=== PATIENT | male | born 1975 | race Caucasian/White ===

== ENCOUNTER 2018-09-05 11:58 | Observation (INO) | payer BC ==
--- NOTE | 2018-09-05 12:23 | ED ---
General Adult HPI - General Chief complaint: Chest Pain Stated complaint: chest & arm pain Time Seen by Provider: 09/05/18 12:11 Source: patient, RN notes reviewed, old records reviewed Mode of arrival: wheelchair Limitations: no limitations - History of Present Illness Initial comments: 43-year-old male with no significant medical history presents for evaluation of left-sided chest pain. Patient's pain has been present for the past 3 days. Describes it as a constant dull left-sided chest ache. He does have some pain in his back as well. He reports lifting some heavy items at work and also initiating a new workout routine. Patient is presenting because he is concerned that this may be related to his heart. Denies sharp shooting pains. Denies dyspnea. Denies cough. Denies nausea vomiting or diaphoresis. No known history of CAD. No family history of CAD. - Related Data Home Medications Medication Instructions Recorded Confirmed No Known Home Medications 09/05/18 09/05/18 Allergies Allergy/AdvReac Type Severity Reaction Status Date / Time No Known Allergies Allergy Verified 09/05/18 12:34 Review of Systems ROS Statement: Those systems with pertinent positive or pertinent negative responses have been documented in the HPI. ROS Other: All systems not noted in ROS Statement are negative. Past Medical History Past Medical History: No Reported History History of Any Multi-Drug Resistant Organisms: None Reported Past Surgical History: No Surgical Hx Reported Past Psychological History: No Psychological Hx Reported Smoking Status: Never smoker Past Alcohol Use History: Occasional Past Drug Use History: None Reported General Exam Limitations: no limitations General appearance: alert, in no apparent distress Head exam: Present: atraumatic, normocephalic Eye exam: Present: normal appearance, PERRL ENT exam: Present: normal exam Neck exam: Present: normal inspection. Absent: tenderness, meningismus Respiratory exam: Present: normal lung sounds bilaterally. Absent: respiratory distress, wheezes, chest wall tenderness, accessory muscle use Cardiovascular Exam: Present: regular rate, normal rhythm GI/Abdominal exam: Present: soft. Absent: distended, tenderness, guarding Extremities exam: Present: normal inspection, normal capillary refill. Absent: pedal edema, calf tenderness Back exam: Present: normal inspection. Absent: full ROM, tenderness Neurological exam: Present: alert, oriented X3, CN II-XII intact. Absent: motor sensory deficit Psychiatric exam: Present: normal affect, normal mood Skin exam: Present: warm, dry, intact. Absent: cyanosis, diaphoretic Course Vital Signs 09/05/18 09/05/18 11:59 12:39 Temperature 97.7 F Pulse Rate 81 59 L Respiratory 18 16 Rate Blood Pressure 152/96 131/79 O2 Sat by Pulse 100 99 Oximetry EKG Findings - EKG Comments: EKG Findings:: EKG: Normal sinus rhythm with sinus arrhythmia, rate of 71, NV interval 166, QRS duration 92, QTC 432, no ST segment elevation Medical Decision Making - Medical Decision Making 43-year-old male presenting with left-sided chest pain. Pain is not reproducible on exam. Patient is concerned this may be related to his heart. EKG is negative for definitive signs of ischemia. Chest x-ray negative for acute cardiopulmonary disease. Patient has normal CBC, normal CMP, negative d- dimer, negative initial troponin. Patient will be kept in observation for serial cardiac enzymes, cardiology consultation. - Lab Data Result diagrams: 09/05/18 12:29 09/05/18 12:29 Lab Results 09/05/18 09/05/18 09/05/18 Range/Units 12:29 12:29 12:29 WBC 7.5 (3.8-10.6) k/uL RBC 4.76 (4.30-5.90) m/uL Hgb 14.6 (13.0-17.5) gm/dL Hct 44.8 (39.0-53.0) % MCV 94.1 (80.0-100.0) fL MCH 30.7 (25.0-35.0) pg MCHC 32.6 (31.0-37.0) g/dL RDW 12.3 (11.5-15.5) % Plt Count 271 (150-450) k/uL Neutrophils % 73 % Lymphocytes % 21 % Monocytes % 5 % Eosinophils % 1 % Basophils % 0 % Neutrophils # 5.5 (1.3-7.7) k/uL Lymphocytes # 1.5 (1.0-4.8) k/uL Monocytes # 0.3 (0-1.0) k/uL Eosinophils # 0.0 (0-0.7) k/uL Basophils # 0.0 (0-0.2) k/uL PT (9.0-12.0) sec INR (<1.2) APTT (22.0-30.0) sec D-Dimer (<0.60) mg/L FEU Sodium 143 (137-145) mmol/L Potassium 3.9 (3.5-5.1) mmol/L Chloride 108 H (98-107) mmol/L Carbon Dioxide 24 (22-30) mmol/L Anion Gap 11 mmol/L BUN 17 (9-20) mg/dL Creatinine 1.02 (0.66-1.25) mg/dL Est GFR (CKD-EPI)AfAm >90 (>60 ml/min/1.73 sqM) Est GFR (CKD-EPI)NonAf >90 (>60 ml/min/1.73 sqM) Glucose 105 H (74-99) mg/dL Calcium 10.4 H (8.4-10.2) mg/dL Magnesium 2.0 (1.6-2.3) mg/dL Total Bilirubin 1.3 (0.2-1.3) mg/dL AST 40 (17-59) U/L ALT 37 (21-72) U/L Alkaline Phosphatase 78 (38-126) U/L Total Creatine Kinase 184 H (55-170) U/L CK-MB (CK-2) 0.7 (0.0-2.4) ng/mL CK-MB (CK-2) Rel Index 0.4 Troponin I <0.012 (0.000-0.034) ng/mL Total Protein 8.9 H (6.3-8.2) g/dL Albumin 5.1 H (3.5-5.0) g/dL 09/05/18 Range/Units 12:29 WBC (3.8-10.6) k/uL RBC (4.30-5.90) m/uL Hgb (13.0-17.5) gm/dL Hct (39.0-53.0) % MCV (80.0-100.0) fL MCH (25.0-35.0) pg MCHC (31.0-37.0) g/dL RDW (11.5-15.5) % Plt Count (150-450) k/uL Neutrophils % % Lymphocytes % % Monocytes % % Eosinophils % % Basophils % % Neutrophils # (1.3-7.7) k/uL Lymphocytes # (1.0-4.8) k/uL Monocytes # (0-1.0) k/uL Eosinophils # (0-0.7) k/uL Basophils # (0-0.2) k/uL PT 9.8 (9.0-12.0) sec INR 1.0 (<1.2) APTT 23.6 (22.0-30.0) sec D-Dimer 0.25 (<0.60) mg/L FEU Sodium (137-145) mmol/L Potassium (3.5-5.1) mmol/L Chloride (98-107) mmol/L Carbon Dioxide (22-30) mmol/L Anion Gap mmol/L BUN (9-20) mg/dL Creatinine (0.66-1.25) mg/dL Est GFR (CKD-EPI)AfAm (>60 ml/min/1.73 sqM) Est GFR (CKD-EPI)NonAf (>60 ml/min/1.73 sqM) Glucose (74-99) mg/dL Calcium (8.4-10.2) mg/dL Magnesium (1.6-2.3) mg/dL Total Bilirubin (0.2-1.3) mg/dL AST (17-59) U/L ALT (21-72) U/L Alkaline Phosphatase (38-126) U/L Total Creatine Kinase (55-170) U/L CK-MB (CK-2) (0.0-2.4) ng/mL CK-MB (CK-2) Rel Index Troponin I (0.000-0.034) ng/mL Total Protein (6.3-8.2) g/dL Albumin (3.5-5.0) g/dL Disposition Clinical Impression: Chest pain Disposition: HOME SELF-CARE Condition: Stable Is patient prescribed a controlled substance at d/c from ED?: No Referrals: None,Stated [Primary Care Provider] - 1-2 days Decision to Admit Reason: Admit from EC Decision Date: 09/05/18 Decision Time: 14:45
--- NOTE | 2018-09-05 12:50 | XR ---
EXAMINATION TYPE: XR chest 2V DATE OF EXAM: 09/05/2018 COMPARISON: None INDICATION: Chest pain left arm pain TECHNIQUE: Frontal and lateral views of the chest are obtained. FINDINGS: The heart size is normal. The pulmonary vasculature is normal. The lungs are clear. IMPRESSION: 1. No acute pulmonary process.
[2018-09-05 12:56] LABS: Basophils % (A) 0 %; Eosinophils % (A) 1 %; HCT 44.8 % (39.0-53.0); HGB 14.6 gm/dL (13.0-17.5); Lymphocytes # (A) 1.5 k/uL (1.0-4.8); Lymphocytes % (A) 21 %; MCH 30.7 pg (25.0-35.0); MCHC 32.6 g/dL (31.0-37.0); MCV 94.1 fL (80.0-100.0); Mean Platelet Volume 7.1; Monocytes # (A) 0.3 k/uL (0-1.0); Monocytes % (A) 5 %; Neutrophils # (A) 5.5 k/uL (1.3-7.7); Neutrophils % (A) 73 %; Platelet Count 271 k/uL (150-450); RBC 4.76 m/uL (4.30-5.90); RDW 12.3 % (11.5-15.5); WBC 7.5 k/uL (3.8-10.6)
[2018-09-05 13:11] LABS: D-Dimer 0.25 mg/L FEU (<0.60); Partial Thromboplastin Time 23.6 sec (22.0-30.0); Prothrombin Time 9.8 sec (9.0-12.0)
[2018-09-05 13:19] LABS: ALT 37 U/L (21-72); AST 40 U/L (17-59); Albumin 5.1 g/dL (3.5-5.0); Alkaline Phosphatase 78 U/L (38-126); Anion Gap 11 mmol/L; Blood Urea Nitrogen 17 mg/dL (9-20); Calcium 10.4 mg/dL (8.4-10.2); Carbon Dioxide 24 mmol/L (22-30); Chloride 108 mmol/L (98-107); Glucose 105 mg/dL (74-99); Potassium 3.9 mmol/L (3.5-5.1); Sodium 143 mmol/L (137-145); Total Bilirubin 1.3 mg/dL (0.2-1.3); Total Protein 8.9 g/dL (6.3-8.2)
[2018-09-05 13:20] LABS: Creatine Kinase 184 U/L (55-170)
[2018-09-05 13:30] LABS: Creatine Kinase MB 0.7 ng/mL (0.0-2.4); Troponin I <0.012 ng/mL (0.000-0.034)
[2018-09-05] MEDS ORDERED: ASPIRIN 325 MG TAB PO STA (14:38)
[2018-09-05] MEDS ORDERED: NALOXONE 0.4 MG/ML 1 ML VIAL IV PRN (14:41)
[2018-09-05] MEDS ORDERED: ACETAMINOPHEN TAB 325 MG TAB PO PRN (14:41)
[2018-09-05] MEDS ORDERED: ONDANSETRON 4 MG/2 ML VIAL IVP PRN (14:41)
[2018-09-05] MEDS ORDERED: IBUPROFEN 400 MG TAB PO PRN (14:41)
--- NOTE | 2018-09-05 16:24 | P.HPIM ---
History of Present Illness H&P Date: 09/05/18 Chief Complaint: Chest pain 43-year-old male with no past medical history presents the ED for chest pain. Patient states he has been experiencing this pain since Wednesday and Wednesday. Pain started while he was laying down on the couch. Patient reports pain to be constant. Pain is left-sided. Pain is 2 out of 10 in severity. Pain is described as dull and aching in nature. Pain occasionally radiates to the left shoulder. Pain is non-tender and non- pleuritic. Patient reports no aggravating or alleviating factors. Patient does report doing heavy lifting at work. His pain got more aggravated this morning, prompting him to come to the ED. He denies any headaches, lower extremity edema, nausea, vomiting, fever, cough, shortness of breath, palpitations, changes in urination or bowel habits. No changes in appetite or weight. He does report smoking half pack per day for about 7-10 years. He has no family history of early cardiac disease. In the ED, CBC and coagulation panel was unremarkable. CMP showed a chloride of 108, glucose 105, calcium of 10.4. Creatinine kinase is 184. Initial troponin was less than 0.012, EKG showing normal sinus rhythm. Chest x-ray shows no acute pulmonary process. Patient is admitted for chest pain, rule out acute coronary syndrome. Cardiology on consult. Review of Systems All systems: negative Past Medical History Past Medical History: No Reported History History of Any Multi-Drug Resistant Organisms: None Reported Past Surgical History: No Surgical Hx Reported Past Psychological History: No Psychological Hx Reported Smoking Status: Never smoker Past Alcohol Use History: Occasional Past Drug Use History: None Reported - Past Family History Mother Family Medical History: AFIB, Hypertension Father Family Medical History: AFIB Medications and Allergies Home Medications Medication Instructions Recorded Confirmed Type No Known Home Medications 09/05/18 09/05/18 History Allergies Allergy/AdvReac Type Severity Reaction Status Date / Time No Known Allergies Allergy Verified 09/05/18 12:34 Physical Exam Vitals: Vital Signs Temp Pulse Pulse Pulse Resp BP BP 09/05/18 15:34 58 L 09/05/18 15:15 98.1 F 56 L 18 137/76 09/05/18 14:57 98.1 F 74 16 125/74 09/05/18 12:39 59 L 16 131/79 09/05/18 11:59 97.7 F 81 18 152/96 Pulse Ox 09/05/18 15:34 09/05/18 15:15 97 09/05/18 14:57 100 09/05/18 12:39 99 09/05/18 11:59 100 Intake and Output 09/05/18 09/05/18 09/05/18 06:59 14:59 22:59 Other: Weight 95.254 kg 97.4 kg General: [non toxic], [no distress], [appears at stated age] Derm: [warm], [dry] Head: [atraumatic], [normocephalic], [symmetric] Eyes: [EOMI], [no lid lag], [anicteric sclera] Mouth: [no lip lesion], [mucus membranes moist] Cardiovascular: [S1S2 reg], [no murmur], [positive posterior tibial pulse bilateral], Lungs: [CTA bilateral], [no rhonchi, no rales] , [no accessory muscle use] Abdominal: [soft], [ nontender to palpation], [no guarding], [no appreciable organomegaly] Ext: [no gross muscle atrophy], [no edema], [no contractures] Neuro: [ CN II-XI grossly intact], [no focal neuro deficits] Psych: [Alert], [oriented], [appropriate affect] Results CBC & Chem 7: 09/05/18 12:29 09/05/18 12:29 Labs: Abnormal Lab Results - Last 24 Hours (Table) 09/05/18 09/05/18 Range/Units 12:29 12:29 Chloride 108 H (98-107) mmol/L Glucose 105 H (74-99) mg/dL Calcium 10.4 H (8.4-10.2) mg/dL Total Creatine Kinase 184 H (55-170) U/L Total Protein 8.9 H (6.3-8.2) g/dL Albumin 5.1 H (3.5-5.0) g/dL Thrombosis Risk Factor Assmnt - Choose All That Apply Any of the Below Risk Factors Present?: Yes Each Factor Represents 1 point: Age 41-60 years, Obesity (BMI >25) Other Risk Factors: No Thrombosis Risk Factor Assessment Total Risk Factor Score: 2 Thrombosis Risk Factor Assessment Level: Low Risk Assessment and Plan Assessment: Assessment and Plan 1. Chest pain: Likely MSK due to heavy lifting at work. Low concerns for ACS. Troponin < 0.012 x 1, EKG showing NSR. CXR negative. Telemetry monitoring. Pain management with Tylenol and Motrin PRN. HEART healthy diet. Trend 2 Trop/EKG to r/o ACS. FU Echocardiogram, Cardiology consult. 2. Hypercalcemia: Mildly elevated at 10.4, patient is asymptomatic. FU with PCP in the outPT setting for workup. 3. Elevated CPK: CPK 184. Likely due to heavy lifting. Encourage PO hydration. 4. DVT Prophylaxis: Low risk for VTE. Early mobilization. Patient is being admitted for chest pain, rule out acute coronary syndrome. Trend and troponins. Cardiology on consult.
[2018-09-05 19:35] LABS: Creatine Kinase 136 U/L (55-170)
[2018-09-05 19:49] LABS: Creatine Kinase MB 0.4 ng/mL (0.0-2.4); Troponin I <0.012 ng/mL (0.000-0.034)
[2018-09-05] MEDS ORDERED: MELATONIN 5 MG TABLET PO STA (20:00)
[2018-09-06 02:05] LABS: Creatine Kinase 112 U/L (55-170)
[2018-09-06 02:19] LABS: Creatine Kinase MB 0.3 ng/mL (0.0-2.4); Troponin I <0.012 ng/mL (0.000-0.034)
[2018-09-06 07:43] VITALS: RESP 18; TEMP 97.7
--- NOTE | 2018-09-06 08:30 | P.CRDCN ---
History of Present Illness Consult date: 09/06/18 Chief complaint: Chest discomfort History of present illness: This is a pleasant 43-year-old gentleman with no significant past medical history presented to the emergency room complaining of chest discomfort. He was in his usual state of health until yesterday when he was at home and started experiencing chest discomfort, as a dull kind of discomfort, in the mid as well as left side of the chest, with some radiation to the left arm as well as the left shoulder. No associated symptoms of shortness of breath, sweating, dizziness or lightheadedness or syncope. The discomfort lasted until the patient presented to the emergency room where he was given nitroglycerin without improvement in the symptoms. Currently the patient is chest pain-free. The EKG showed sinus rhythm without any significant ST or T-wave abnormalities. Cardiac enzymes were checked and came in to be unremarkable. 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 No diabetes, hypertension, or dyslipidemia. The patient used to smoke but he quit smoking about 3 years ago. No significant history of premature CAD. Past Medical History Past Medical History: No Reported History History of Any Multi-Drug Resistant Organisms: None Reported Past Surgical History: No Surgical Hx Reported Past Psychological History: No Psychological Hx Reported Smoking Status: Never smoker Past Alcohol Use History: Occasional Past Drug Use History: None Reported - Past Family History Mother Family Medical History: AFIB, Hypertension Father Family Medical History: AFIB Medications and Allergies Home Medications Medication Instructions Recorded Confirmed Type No Known Home Medications 09/05/18 09/05/18 History Allergies Allergy/AdvReac Type Severity Reaction Status Date / Time No Known Allergies Allergy Verified 09/05/18 12:34 Physical Exam Vitals: Vital Signs Temp Pulse Pulse Pulse Resp BP BP 09/06/18 07:25 97.7 F 53 L 18 110/68 09/06/18 03:59 16 09/06/18 03:31 98.5 F 74 16 106/63 09/05/18 23:53 98.3 F 68 16 118/63 09/05/18 23:13 16 09/05/18 20:00 16 09/05/18 19:31 99.1 F 60 16 129/70 09/05/18 16:00 59 L 09/05/18 15:34 58 L 09/05/18 15:15 98.1 F 56 L 18 137/76 09/05/18 14:57 98.1 F 74 16 125/74 09/05/18 12:39 59 L 16 131/79 09/05/18 11:59 97.7 F 81 18 152/96 Pulse Ox 09/06/18 07:25 98 09/06/18 03:59 09/06/18 03:31 95 09/05/18 23:53 95 09/05/18 23:13 09/05/18 20:00 09/05/18 19:31 97 09/05/18 16:00 09/05/18 15:34 09/05/18 15:15 97 09/05/18 14:57 100 09/05/18 12:39 99 09/05/18 11:59 100 Intake and Output 09/05/18 09/06/18 09/06/18 22:59 06:59 14:59 Other: Voiding Method Toilet Toilet # Voids 1 1 Weight 97.4 kg - Constitutional General appearance: no acute distress - Respiratory Respiratory: bilateral: CTA - Cardiovascular Rhythm: regular Heart sounds: normal: S1, S2 Results 09/05/18 12:29 09/05/18 12:29 Cardiac Enzymes 09/05/18 09/05/18 09/05/18 Range/Units 12:29 12:29 18:46 AST 40 (17-59) U/L CK-MB (CK-2) 0.7 0.4 (0.0-2.4) ng/mL Troponin I <0.012 <0.012 (0.000-0.034) ng/mL 09/06/18 Range/Units 01:11 AST (17-59) U/L CK-MB (CK-2) 0.3 (0.0-2.4) ng/mL Troponin I <0.012 (0.000-0.034) ng/mL Coagulation 09/05/18 Range/Units 12:29 PT 9.8 (9.0-12.0) sec APTT 23.6 (22.0-30.0) sec CBC 09/05/18 Range/Units 12:29 WBC 7.5 (3.8-10.6) k/uL RBC 4.76 (4.30-5.90) m/uL Hgb 14.6 (13.0-17.5) gm/dL Hct 44.8 (39.0-53.0) % Plt Count 271 (150-450) k/uL Comprehensive Metabolic Panel 09/05/18 Range/Units 12:29 Sodium 143 (137-145) mmol/L Potassium 3.9 (3.5-5.1) mmol/L Chloride 108 H (98-107) mmol/L Carbon Dioxide 24 (22-30) mmol/L BUN 17 (9-20) mg/dL Creatinine 1.02 (0.66-1.25) mg/dL Glucose 105 H (74-99) mg/dL Calcium 10.4 H (8.4-10.2) mg/dL AST 40 (17-59) U/L ALT 37 (21-72) U/L Alkaline Phosphatase 78 (38-126) U/L Total Protein 8.9 H (6.3-8.2) g/dL Albumin 5.1 H (3.5-5.0) g/dL Current Medications Generic Name Dose Route Start Last Admin Trade Name Freq PRN Reason Stop Dose Admin Acetaminophen 650 mg 09/05/18 14:41 Tylenol Tab PO Q6HR PRN Mild Pain or Fever > 100.5 Aspirin 325 mg 09/06/18 09:00 Aspirin PO DAILY TEO Ibuprofen 400 mg 09/05/18 14:41 09/05/18 22:04 Motrin PO 400 mg Q6HR PRN Administration Mild Pain or Fever > 100.5 Naloxone HCl 0.2 mg 09/05/18 14:41 Narcan IV Q2M PRN Opioid Reversal Ondansetron HCl 4 mg 09/05/18 14:41 Zofran IVP Q8HR PRN Nausea And Vomiting Intake and Output 09/05/18 09/06/18 09/06/18 22:59 06:59 14:59 Other: Voiding Method Toilet Toilet # Voids 1 1 Weight 97.4 kg 09/05/18 12:29 09/05/18 12:29 Assessment and Plan Assessment: Assessment #1 atypical chest discomfort Plan #1 the patient was ruled out for acute coronary event #2 I will rule out severe underlying CAD by obtaining a stress test #3 he is already scheduled to undergo an echocardiogram which we will follow-up with #4 follow-up with the patient. We'll continue following up with the patient.
[2018-09-06] MEDS ORDERED: ASPIRIN 325 MG TAB PO SCH (09:00)
[2018-09-06 11:38] VITALS: BP 137/82; PULSE 90
--- NOTE | 2018-09-06 11:39 | EST ---
EXERCISE STRESS DATE OF SERVICE: 09/06/2018 AGE: 43 SEX: M HT: 5'11" WT: 214 PROTOCOL: Vikash Stress Test STAGE: 4 DURATION OF EXERCISE: 10:00 HEART RATE REST: 80 BLOOD PRESSURE REST: 129/83 MAXIMUM HEART RATE ACHIEVED: 154 MAXIMUM BLOOD PRESSURE: 160/80 85% MPHR: 151 100% MPHR: 178 METS: 11.7 INDICATIONS: Chest pain. CLINICAL INFORMATION: STRESS DATA: Pretesting physical examination showed a heart rate of 80, pressure is 129/83 mmHg. Baseline EKG showed sinus rhythm. The patient exercised on the treadmill according to Vikash protocol for a total of 10 minute and achieved 11.7 METS with max heart rate was 154, which is about 86% of maximum predicted heart rate. Maximum blood pressure was 160/80 mmHg. Clinically, the patient did not have any symptoms of chest pain or discomfort and the EKG did not show any significant ST or T-wave abnormalities concerning for ischemia. CONCLUSION: 1. Excellent exercise tolerance. 2. Normal EKG in response to exercise. 3. Essentially normal stress test for the patient. MMODL / IJN: [id number] /
--- NOTE | 2018-09-06 12:01 | ECHOF ---
Referral Reason:Chest pain MEASUREMENTS -------- HEIGHT: 180.3 cm WEIGHT: 97.1 kg BP: 106/63 RVIDd: 3.5 cm (< 3.3) IVSd: 1.1 cm (0.6 - 1.1) LVIDd: 4.6 cm (3.9 - 5.3) LVPWd: 1.1 cm (0.6 - 1.1) IVSs: 1.7 cm LVIDs: 3.1 cm LVPWs: 1.5 cm LA Diam: 3.8 cm (2.7 - 3.8) LAESV Index (A-L): 25.15 ml/m Ao Diam: 3.3 cm (2.0 - 3.7) AV Cusp: 2.4 cm (1.5 - 2.6) MV EXCURSION: 13.991 mm (> 18.000) MV EF SLOPE: 101 mm/s (70 - 150) EPSS: 0.6 cm MV E Dutch: 0.92 m/s MV DecT: 228 ms MV A Dutch: 0.62 m/s MV E/A Ratio: 1.50 RAP: 5.00 mmHg RVSP: 28.25 mmHg FINDINGS -------- Resting bradycardia (HR<60bpm). Suboptimal image quality - poor subcostal views. The left ventricular size is normal. There is borderline concentric left ventricular hypertrophy. Overall left ventricular systolic function is normal with, an EF between 60 - 65 %. The right ventricle is mildly enlarged. Normal LA size by volume 22+/-6 ml/m2. The right atrium is normal in size. The aortic valve is trileaflet and appears structurally normal. There is trace mitral regurgitation. Mild tricuspid regurgitation present. Right ventricular systolic pressure is normal at < 35 mmHg. Trace/mild (physiologic) pulmonic regurgitation. The aortic root size is normal. IVC Not well visulized. There is no pericardial effusion. CONCLUSIONS -------- 1. Resting bradycardia (HR<60bpm). 2. Suboptimal image quality - poor subcostal views. 3. The left ventricular size is normal. 4. There is borderline concentric left ventricular hypertrophy. 5. Overall left ventricular systolic function is normal with, an EF between 60 - 65 %. 6. The right ventricle is mildly enlarged. 7. Normal LA size by volume 22+/-6 ml/m2. 8. The right atrium is normal in size. 9. The aortic valve is trileaflet and appears structurally normal. 10. There is trace mitral regurgitation. 11. Mild tricuspid regurgitation present. 12. Right ventricular systolic pressure is normal at < 35 mmHg. 13. Trace/mild (physiologic) pulmonic regurgitation. 14. The aortic root size is normal. 15. IVC Not well visulized. 16. There is no pericardial effusion. AUTHOR AGENT: Evelia Goins RDCS
--- NOTE | 2018-09-06 12:54 | P.DS ---
Providers Date of admission: 09/05/18 14:41 Expected date of discharge: 09/06/18 Attending physician: Francoise Vital MD Consults: 09/05/18 14:41 Consult Physician Routine Consulting Provider: Buddy Garcia Consult Reason/Comments: Chest Pain Do you want consulting provider notified?: Yes Primary care physician: Stated None - Discharge Diagnosis(es) (1) Hypercalcemia Current Visit: Yes Status: Acute (2) Elevated CPK Current Visit: Yes Status: Acute (3) Chest pain Current Visit: Yes Status: Acute Hospital Course: 43-year-old male with no past medical history presents the ED for chest pain. Patient states he has been experiencing this pain since Wednesday and Wednesday. Pain started while he was laying down on the couch. Patient reports pain to be constant. Pain is left-sided. Pain is 2 out of 10 in severity. Pain is described as dull and aching in nature. Pain occasionally radiates to the left shoulder. Pain is non-tender and non- pleuritic. Patient reports no aggravating or alleviating factors. Patient does report doing heavy lifting at work. His pain got more aggravated this morning, prompting him to come to the ED. He denies any headaches, lower extremity edema, nausea, vomiting, fever, cough, shortness of breath, palpitations, changes in urination or bowel habits. No changes in appetite or weight. He does report smoking half pack per day for about 7-10 years. He has no family history of early cardiac disease. In the ED, CBC and coagulation panel was unremarkable. CMP showed a chloride of 108, glucose 105, calcium of 10.4. Creatinine kinase is 184. Initial troponin was less than 0.012, EKG showing normal sinus rhythm. Chest x-ray shows no acute pulmonary process. With regard to his chest pain, he was assessed by cardiology. Stress past likely muscular skeletal secondary to working out. Troponin was less than 0.012 3 with EKG showing normal sinus rhythm. Chest x-ray was negative. Cardiology was consulted and recommended echocardiogram and a stress test. Echocardiogram was 60-65% with no wall motion abnormalities. Stress test was negative. Patient seen and examined prior to discharge no more chest pain, shortness of breath or palpitations. Girlfriend at bedside asking many questions. General: [non toxic], [no distress], [appears at stated age] Derm: [warm], [dry] Head: [atraumatic], [normocephalic], [symmetric] Eyes: [EOMI], [no lid lag], [anicteric sclera] Mouth: [no lip lesion], [mucus membranes moist] Cardiovascular: [S1S2 reg], [no murmur], [positive posterior tibial pulse bilateral], Lungs: [CTA bilateral], [no rhonchi, no rales] , [no accessory muscle use] Abdominal: [soft], [ nontender to palpation], [no guarding], [no appreciable organomegaly] Ext: [no gross muscle atrophy], [no edema], [no contractures] Neuro: [no focal neuro deficits] Psych: [Alert], [oriented], [appropriate affect] Assessment and Plan 1. Chest pain: Likely MSK due to heavy lifting at work. Low concerns for ACS. Troponin < 0.012 x 3, EKG showing NSR. CXR negative. Telemetry monitoring. Pain management with Tylenol and Motrin PRN. HEART healthy diet. Echo shows EF 60-65 % with no regional wall motion abnormalities. Cardiology consulted - recommended stress test (negative). 2. Hypercalcemia: Mildly elevated at 10.4, patient is asymptomatic. FU with PCP in the outPT setting for workup. 3. Elevated CPK: CPK 184. Likely due to heavy lifting. Encourage PO hydration. 4. DVT Prophylaxis: Low risk for VTE. Early mobilization. Patient is being admitted for chest pain. ACS ruled out. Stress test negative. Advised to follow up with Dr. Giang within 1 week. Pertinent Studies: CXR Stress test Patient Condition at Discharge: Stable Plan - Discharge Summary Discharge Rx Participant: No New Discharge Prescriptions: Continue No Known Home Medications Discharge Medication List No Known Home Medications 09/05/18 [History] Follow up Appointment(s)/Referral(s): Baldomero Giang MD [STAFF PHYSICIAN] - 2 Weeks None,Stated [Primary Care Provider] - 1-2 days Activity/Diet/Wound Care/Special Instructions: Diet: Regular Please hold your primary care provider within 1-2 days of discharge. Please follow-up with your activities attendant within 1 week of discharge. Discharge Disposition: HOME SELF-CARE
[2018-09-06 13:34] LABS: Cholesterol 173 mg/dL (<200); HDL Cholesterol 38 mg/dL (40-60); LDL Cholesterol,Calculated 116 mg/dL (0-99); Triglycerides 94 mg/dL (<150)
== END 2018-09-06 14:07 | disposition home or self-care (01) ==
LOC: EC 11:58 → 1SOBS 14:41
PROVIDERS: ADMIT Family Medicine; ATTEND Family Medicine
DX: R07.89 Other chest pain (principal); M79.602 Pain in left arm; M54.9 Dorsalgia, unspecified; X50.0XXA Overexertion from strenuous movement or load, initial encounter; E83.52 Hypercalcemia; R74.8 Abnormal levels of other serum enzymes; Y99.0 Civilian activity done for income or pay; F17.210 Nicotine dependence, cigarettes, uncomplicated; Z82.49 Family history of ischemic heart disease and other diseases of the circulatory system; E66.9 Obesity, unspecified; Z68.29 Body mass index [BMI] 29.0-29.9, adult
CPT/HCPCS: 99285; 36415; 93005; 93017; 93306; 85379; 80061; 80053; 82550 ×2; 82553 ×2; 83735; 84484 ×2; 85025; 85610; 85730; 71046; G0378 ×2